=== PATIENT | female | born 1965 | race Two or more races ===

== ENCOUNTER 2017-03-29 11:57 | Emergency (ER) | payer MEDICAID ==
[~2017-03-29] VITALS: Ht 154.9 cm; Wt 63.5 kg
--- NOTE | 2017-03-29 12:10 | NUR ---
BBRA 86 C/O WEAKNESS/DIZZINESS WHILE CLEANING A HOUSE. PER EMS HYPOTENSIVE, DENIES LOC/KO. 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 AT BS FOR EVAL. NOTED WITH GENERALIZED WEAKNESS. SAFETY AND COMFORT MEASURES PROVIDED. WILL MONITOR.
--- NOTE | 2017-03-29 12:15 | NUR ---
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 PT MEDICATED ORDERED.
[2017-03-29 12:27] LABS: BASOPHILS % (AUTO) 0.7 % (0.0-2.0); EOSINOPHILS # (AUTO) 0.1 /CMM (0.0-0.7); EOSINOPHILS % (AUTO) 1.5 % (0.0-6.0); HEMATOCRIT 41 % (33-45); HEMOGLOBIN 13.7 g/dL (11.5-14.8); LYMPHOCYTES # (AUTO) 2.3 /CMM (0.8-4.8); LYMPHOCYTES % (AUTO) 34.3 % (20.0-44.0); MEAN CORPUSCULAR HEMOGLOBIN 30 PG (26.0-33.0); MEAN CORPUSCULAR HGB CONC 34 g/dl (31.0-36.0); MEAN CORPUSCULAR VOLUME 88 fL (82-100); MONOCYTES # (AUTO) 0.3 /CMM (0.1-1.30); MONOCYTES % (AUTO) 4.3 % (2.0-12.0); NEUTROPHILS % (AUTO) 59.2 % (43.0-81.0); PLATELET COUNT (AUTO) 260 /CMM (150-450); RDW COEFFICIENT OF VARIATION 13.4 (11.5-15.0); RED BLOOD CELL COUNT(AUTO) 4.63 MIL/uL (4.0-5.2); WHITE BLOOD COUNT (AUTO) 6.7 K/uL (4.3-11.0)
[2017-03-29] MEDS ORDERED: IV NS 0.9% 500 ML BAG IV ONE (12:30)
[2017-03-29 12:36] LABS: CALCIUM, SERUM 9.1 mg/dL (8.5-10.1); CREATININE 0.7 mg/dL (0.6-1.3)
--- NOTE | 2017-03-29 12:41 | NUR ---
PATIENT WAS TAKEN TO CT
[2017-03-29] MEDS ORDERED: IV NS 0.9% 1,000 ML BAG IV ONE (13:00)
[2017-03-29] MEDS ORDERED: POTASSIUM CHLORIDE 20 MEQ TAB.PRT.SR PO ONE ×2 (13:00→13:09)
--- NOTE | 2017-03-29 13:59 | NUR ---
CALLED NURSE SUP FOR TELE BED
--- NOTE | 2017-03-29 14:00 | NUR ---
Patient is resting comfortably in bed with eyes closed. Easily aroused. VSS
[2017-03-29 14:14] LABS: APPEARANCE,URINE Clear (CLEAR); BILIRUBIN,URINE Negative (NEGATIVE); BLOOD, URINE Small Ery/uL (NEGATIVE); COLOR,URINE Yellow (YELLOW); KETONES,URINE Negative (NEGATIVE); LEUKOCYTE ESTERASE ,URINE Moderate (NEGATIVE); NITRITE, URINE Negative (NEGATIVE); PH,URINE 6.5 (5.0-8.0); PROTEIN,URINE Negative (NEGATIVE); UGLUCOSE Negative (NEGATIVE); UROBILINOGEN,URINE 0.2 EU/dL (0.2)
[2017-03-29 14:22] LABS: BACTERIA,URINE None seen /HPF (None Seen); SQUAMOUS EPITHELIAL CELL,UR Few /HPF (None Seen)
--- NOTE | 2017-03-29 15:00 | NUR ---
IV removed. Catheter intact and site benign. Pressure and 4x4 applied to site. No bleeding noted.
--- NOTE | 2017-03-29 15:18 | NUR ---
Pt ambulatory with a steady gait.
--- NOTE | 2017-03-29 15:24 | NUR ---
Patient discharged to home in stable condition. Written and verbal after care instructions given. Patient verbalizes understanding of instruction. DC TO WAITING ROOM WAITING FOR TO PICK HER UP.
[2017-03-29 15:26] VITALS: BP 151/83
== END 2017-03-29 15:26 | disposition home or self-care (01) ==
LOC: ER 11:58
DX: R55 Syncope and collapse (principal); E87.6 Hypokalemia; R53.1 Weakness; R06.02 Shortness of breath; R07.9 Chest pain, unspecified; E78.00 Pure hypercholesterolemia, unspecified
CPT/HCPCS: 36415; 70450; 71010; 80048; 81001; 84484; 84703; 85025; 85378; 93005; 96360; 99285; A4606; J7030; J7040; Z7610; 81000-TC